=== PATIENT | male | born 1960 | race Caucasian/White ===

== ENCOUNTER → 2018-01-13 | Outpatient (CLI) | payer MEDICAID ==
[~2018-01-13] MED LIST: FURO-92 PO; FURO-93 PO; LACT1CAP35 PO; LIDOCAINE-MPF 2%, 2ML ONE; METR500T PO; MULT-224 PO; OXYC1TAB7 PO; SPIR100T4 PO; SPIR25TA PO; SPIR50TA4 PO; VANC125C2 PO
== END | disposition home or self-care (01) ==
LOC: RAD 08:47
PROVIDERS: ATTEND Nurse Practitioner Adult Health
DX: K70.31 Alcoholic cirrhosis of liver with ascites (principal); F17.200 Nicotine dependence, unspecified, uncomplicated
CPT/HCPCS: 49083; J3490

== ENCOUNTER → 2018-04-24 | Outpatient (CLI) | payer MEDICAID ==
[~2018-04-24] MED LIST changes: +LIDOCAINE-MPF 1%, 5ML ONE; -LIDOCAINE-MPF 2%, 2ML ONE
== END | disposition home or self-care (01) ==
LOC: RAD 12:53
PROVIDERS: ATTEND Nurse Practitioner Adult Health
DX: K70.31 Alcoholic cirrhosis of liver with ascites (principal)
CPT/HCPCS: 49083